=== PATIENT | male | born 1995 | race Two or more races ===

== ENCOUNTER 2019-05-26 09:49 | Emergency (ER) | payer BC ==
[~2019-05-26] VITALS: Ht 182.9 cm; Wt 111.0 kg
--- NOTE | 2019-05-26 10:16 | NUR ---
Discussed pt's c/o of shin pain with MELANIA Hoffman; new order received. Pt was dozing upon entry into room, but he immediately requested "shot of Ativan." Request forwarded to MELANIA Hoffman; order denied @ this time.
[2019-05-26] MEDS ORDERED: acetaminophen 325mg tablet PO ONE (10:20)
[2019-05-26 10:24] VITALS: BP 129/90
[2019-05-26] MEDS ORDERED: clonazePAM 1mg tablet PO ONE (10:35)
== END 2019-05-26 11:04 | disposition home or self-care (01) ==
LOC: ER 09:49
DX: F41.9 Anxiety disorder, unspecified (principal); F12.90 Cannabis use, unspecified, uncomplicated; F10.99 Alcohol use, unspecified with unspecified alcohol-induced disorder; Z98.890 Other specified postprocedural states; Y90.9 Presence of alcohol in blood, level not specified
CPT/HCPCS: 99284